=== PATIENT | female | born 1990 | race Caucasian/White ===

== ENCOUNTER 2017-04-24 20:08 | Emergency (ER) | payer OTHER, MEDICAID ==
[2017-04-24 20:13] VITALS: BP 127/78; PULSE 77; RESP 17; TEMP 98.3; O2SAT 100
--- NOTE | 2017-04-24 20:28 | ED PDOC ---
Lower Extremity Pain/Injury Time Seen by Provider: 04/24/17 20:25 Chief Complaint (Nursing): Hip Pain Chief Complaint (Provider): left hip pain History Per: Patient (26 y/o female h/o left hip sx 1 year ago here with complaint of left hip pain after lifting heavy boxes today at [employer]. Patient denies any falls/traumatic injury. Patient has been prescribed motrin 600mg for ongoing hip pain (by ortho) last taken at 8 pm night prior.) Past Medical History Reviewed: Historical Data, Nursing Documentation, Vital Signs Vital Signs: Last Vital Signs Temp 98.3 F 04/24/17 20:09 Pulse 77 04/24/17 20:09 Resp 17 04/24/17 20:09 BP 127/78 04/24/17 20:09 Pulse Ox 100 04/24/17 20:09 - Family History Family History: States: No Known Family Hx - Home Medications Home Medications: Ambulatory Orders Medication Instructions Recorded Naproxen 1 tab PO Q12 PRN #14 tab 04/24/17 - Allergies Allergies/Adverse Reactions: Allergies Allergy/AdvReac Type Severity Reaction Status Date / Time tramadol AdvReac Mild VOMITING Verified 04/24/17 20:09 Review of Systems ROS Statement: Except As Marked, All Systems Reviewed And Found Negative Musculoskeletal: Positive for: Other (hip pain) Physical Exam - Reviewed Nursing Documentation Reviewed: Yes Vital Signs Reviewed: Yes - Physical Exam Appears: Positive for: Well, Non-toxic, No Acute Distress Head Exam: Positive for: ATRAUMATIC, NORMAL INSPECTION, NORMOCEPHALIC Skin: Positive for: Normal Color, Warm, DRY Eye Exam: Positive for: EOMI, Normal appearance, PERRL ENT: Positive for: Normal ENT Inspection Neck: Positive for: Normal, Painless ROM Cardiovascular/Chest: Positive for: Regular Rate, Rhythm Respiratory: Positive for: CNT, Normal Breath Sounds Gastrointestinal/Abdominal: Positive for: Normal Exam, Bowel Sounds, Soft Back: Positive for: Normal Inspection Extremity: Positive for: Normal ROM, Tenderness (left proximal thigh tender. Able to flex and extend at hip without difficulty.) Neurologic/Psych: Positive for: Alert, Oriented - ECG O2 Sat by Pulse Oximetry: 100 - Progress ED Course And Treament: Toradol 30 mg IM x 1 dose Hip xry: no fx noted. Hardware intact Disposition - Clinical Impression Clinical Impression: Hip pain - Patient ED Disposition Is Patient to be Admitted: No - Disposition Referrals: Mark Davenport MD [Staff Provider] - Disposition: Routine/Home Disposition Time: 21:14 Condition: FAIR Prescriptions: Naproxen 1 tab PO Q12 PRN #14 tab PRN Reason: Pain, Moderate (4-7) Instructions: Hip Pain (ED) Forms: [facility] ([place]ian), [facility] ED School/Work Excuse
--- NOTE | 2017-04-25 10:26 | RAD ---
PROCEDURE: Left Hip X-ray Radiographs. HISTORY: Hip injury COMPARISON: None. FINDINGS: BONES: The pelvic ring is intact. There is no acute displaced fracture or bone destruction. Bone alignment and mineralization are normal. JOINTS: The right hip joint space is preserved. Status post left hip arthroplasty. No evidence of hardware complications. SOFT TISSUES: Normal. OTHER FINDINGS: None. IMPRESSION: No acute fracture or dislocation.
== END 2017-04-24 21:30 | disposition home or self-care (01) ==
LOC: H.ER 20:08 → EDBD 20:08 → H.ER 21:30
DX: M25.552 Pain in left hip (principal)
CPT/HCPCS: 73503; 81025; 96372; 99282; J1885

== ENCOUNTER 2018-03-02 13:16 | Emergency (ER) | payer OTHER ==
[2018-03-02 13:21] VITALS: BP 108/69; TEMP 98.4
[2018-03-02 13:22] VITALS: PULSE 90; RESP 18; O2SAT 98
--- NOTE | 2018-03-02 13:39 | ED PDOC ---
HPI: Dental Pain/Injury Time Seen by Provider: 03/02/18 13:20 Chief Complaint (Nursing): Dental Pain Chief Complaint (Provider): Left lower dental pain x 2 days History Per: Patient History/Exam Limitations: no limitations Onset/Duration Of Symptoms: Days Current Symptoms Are (Timing): Still Present Additional Complaint(s): 27 yo female with no medical problems presents for evaluation of lrft lower dental pain x 2 dyas. Pt has been taking motrin at home, last dose 2 houts [employer]. Pt states she is unable to sleep. No fever/chills. No drainage. Past Medical History Reviewed: Historical Data, Nursing Documentation, Vital Signs Vital Signs: Last Vital Signs Temp 98.4 F 03/02/18 13:21 Pulse 90 03/02/18 13:21 Resp 18 03/02/18 13:21 BP 108/69 03/02/18 13:21 Pulse Ox 98 03/02/18 13:21 - Medical History PMH: No Chronic Diseases - Surgical History Surgical History: No Surg Hx - Family History Family History: States: No Known Family Hx - Living Arrangements Living Arrangements: With Family - Home Medications Home Medications: Ambulatory Orders Medication Instructions Recorded Naproxen 1 tab PO Q12 PRN #14 tab 04/24/17 Amoxicillin/Clavulanate [Augmentin 1 tab PO BID #20 tab 03/02/18 875 MG-125 MG] oxyCODONE/Acetaminophen [Percocet 1 ea PO Q6H PRN #10 tab 03/02/18 5/325 mg Tab] - Allergies Allergies/Adverse Reactions: Allergies Allergy/AdvReac Type Severity Reaction Status Date / Time tramadol AdvReac Mild VOMITING Verified 04/24/17 20:09 Review of Systems ROS Statement: Except As Marked, All Systems Reviewed And Found Negative Constitutional: Negative for: Fever, Chills ENT: Positive for: Other Physical Exam - Reviewed Nursing Documentation Reviewed: Yes Vital Signs Reviewed: Yes - Physical Exam Appears: Positive for: Well, Non-toxic, No Acute Distress Head Exam: Positive for: ATRAUMATIC, NORMAL INSPECTION, NORMOCEPHALIC Skin: Positive for: Normal Color, Warm, DRY Eye Exam: Positive for: Normal appearance ENT: Positive for: Normal ENT Inspection, Other ((+) dental decay, left lower - No erythema of the gingiva, no drainage) Neck: Positive for: Normal Cardiovascular/Chest: Negative for: Bradycardia, Tachycardia Respiratory: Negative for: Accessory Muscle Use, Respiratory Distress Back: Positive for: Normal Inspection Extremity: Positive for: Normal ROM Neurologic/Psych: Positive for: Alert, Oriented, Gait - ECG O2 Sat by Pulse Oximetry: 98 Medical Decision Making Medical Decision Making: Discussed importance of f/u with dentist. Disposition - Clinical Impression Clinical Impression: Dental decay - Disposition Disposition: Routine/Home Disposition Time: 13:33 Condition: STABLE Prescriptions: Amoxicillin/Clavulanate [Augmentin 875 MG-125 MG] 1 tab PO BID #20 tab oxyCODONE/Acetaminophen [Percocet 5/325 mg Tab] 1 ea PO Q6H PRN #10 tab PRN Reason: Pain, Severe (8-10) Instructions: Tooth Decay, Adult (DC) Forms: [facility] (American)
== END 2018-03-02 14:25 | disposition home or self-care (01) ==
LOC: H.ER 13:16
DX: K02.9 Dental caries, unspecified (principal)

== ENCOUNTER 2018-03-02 21:07 | Emergency (ER) | payer OTHER ==
[2018-03-02 21:13] VITALS: BP 128/84; PULSE 89; RESP 16; TEMP 98.4; O2SAT 99
[2018-03-02] MEDS ORDERED: Oxycodone/Acetaminophen 5/325 mg Tab PO STA (21:48)
--- NOTE | 2018-03-02 21:52 | ED PDOC ---
HPI: Dental Pain/Injury Time Seen by Provider: 03/02/18 21:18 Chief Complaint (Nursing): Dental Pain Chief Complaint (Provider): Right lower dental pain x 2 days History Per: Patient History/Exam Limitations: no limitations Onset/Duration Of Symptoms: Days Current Symptoms Are (Timing): Still Present Additional Complaint(s): Pt reports continued pain. No improvement with Tylenol #3 Pt given Rx for percocet. The first pharmacy she went to wrote on the Rx but she did not fill it because there was a co-pay. Pt took the Rx which was written on to [facility]. The pharmacist at [facility] called ER stating he has the Rx for percocet but could not fill it because it was written on by previous pharmacy. Pts Rx was taken by pharmacist and verbal order was given for tylenol #3. Pt took tylenol #3 at home and states it is not helping the pain. Tylenol # 3 wasted in ER. New Rx will be given for percocet. Past Medical History Reviewed: Historical Data, Nursing Documentation, Vital Signs Vital Signs: Last Vital Signs Temp 98.4 F 03/02/18 21:10 Pulse 89 03/02/18 21:10 Resp 16 03/02/18 21:10 BP 128/84 03/02/18 21:10 Pulse Ox 99 03/02/18 21:10 - Medical History PMH: No Chronic Diseases - Surgical History Surgical History: No Surg Hx - Family History Family History: States: No Known Family Hx - Home Medications Home Medications: Ambulatory Orders Medication Instructions Recorded Naproxen 1 tab PO Q12 PRN #14 tab 04/24/17 Amoxicillin/Clavulanate [Augmentin 1 tab PO BID #20 tab 03/02/18 875 MG-125 MG] oxyCODONE/Acetaminophen [Percocet 1 ea PO Q6H PRN #10 tab 03/02/18 5/325 mg Tab] oxyCODONE/Acetaminophen [Percocet 1 ea PO Q6H PRN #10 tab 03/02/18 5/325 mg Tab] - Allergies Allergies/Adverse Reactions: Allergies Allergy/AdvReac Type Severity Reaction Status Date / Time tramadol AdvReac Mild VOMITING Verified 03/02/18 21:09 Review of Systems ROS Statement: Except As Marked, All Systems Reviewed And Found Negative Constitutional: Negative for: Fever, Chills ENT: Positive for: Other Physical Exam - Reviewed Nursing Documentation Reviewed: Yes Vital Signs Reviewed: Yes - Physical Exam Appears: Positive for: Well, Non-toxic, No Acute Distress Head Exam: Positive for: ATRAUMATIC, NORMAL INSPECTION, NORMOCEPHALIC Skin: Positive for: Normal Color, Warm, DRY Eye Exam: Positive for: Normal appearance ENT: Positive for: Other ((+) left lower dental decay). Negative for: Normal ENT Inspection Neck: Positive for: Normal Respiratory: Negative for: Accessory Muscle Use, Respiratory Distress Back: Positive for: Normal Inspection Extremity: Positive for: Normal ROM. Negative for: Tenderness Neurologic/Psych: Positive for: Alert, Oriented - ECG O2 Sat by Pulse Oximetry: 99 Disposition - Clinical Impression Clinical Impression: Pain, dental - Patient ED Disposition Is Patient to be Admitted: No Counseled Patient/Family Regarding: Diagnosis, Need For Followup, Rx Given - Disposition Referrals: [facility] [Outside] Disposition: Routine/Home Disposition Time: 21:53 Condition: GOOD Prescriptions: oxyCODONE/Acetaminophen [Percocet 5/325 mg Tab] 1 ea PO Q6H PRN #10 tab PRN Reason: Pain, Severe (8-10) Instructions: Dental Pain (DC)
== END 2018-03-02 22:43 | disposition home or self-care (01) ==
LOC: H.ER 21:07
DX: K08.89 Other specified disorders of teeth and supporting structures (principal)